=== PATIENT | female | born 1960 | race Two or more races ===

== ENCOUNTER 2025-04-21 23:11 | Emergency (ER) | payer SELFPAY ==
[~2025-04-21] VITALS: Ht 165.1 cm; Wt 56.7 kg
[2025-04-22] MEDS ORDERED: IBUP-1955 PO (00:47)
[2025-04-22] MEDS ORDERED: ACET-3102 PO (00:47)
[2025-04-22] MEDS ORDERED: ONDA4TAB5 PO (00:47)
[2025-04-22 01:31] VITALS: BP 135/75; TEMP 98; O2SAT 99
== END 2025-04-22 01:32 | disposition home or self-care (01) ==
LOC: ER 23:13
DX: S06.0X0A Concussion without loss of consciousness, initial encounter (principal); R11.0 Nausea; R42 Dizziness and giddiness; W22.09XA Striking against other stationary object, initial encounter; Y93.89 Activity, other specified; Y92.89 Other specified places as the place of occurrence of the external cause; Y99.8 Other external cause status
CPT/HCPCS: 70450-TC; 72125-TC